=== PATIENT | female | born 1990 | race Caucasian/White ===

== ENCOUNTER 2016-12-22 18:35 | Inpatient (IN) ==
[2016-12-22] MEDS ORDERED: MAG-AL + SIM ORAL LIQUID 30ml PO PRN ×2 (19:29→21:29)
[2016-12-22] MEDS ORDERED: CARBOPROST 250 MCG/ML INJECTION IM PRN (19:29)
[2016-12-22] MEDS ORDERED: METHYLERGONOVINE 0.2 MG/ML INJECTION IM PRN (19:29)
[2016-12-22] MEDS ORDERED: ACETAMINOPHEN 500 MG TABLET PO PRN ×2 (19:29→21:29)
[2016-12-22] MEDS ORDERED: CALCIUM CARBONATE Chewable 500mg TABLET PO PRN ×2 (19:29→21:29)
[2016-12-22] MEDS ORDERED: LIDOCAINE 1% (10mg/ml) 2mL INJ PF SDV ID PRN (19:29)
[2016-12-22] MEDS ORDERED: LR 1,000 ML IV PRN (19:29)
[2016-12-22] MEDS ORDERED: AMPICILLIN 2 GM in NS 100 ML IV ONE (19:45)
[2016-12-22] MEDS ORDERED: MORPHINE SULFATE 10 MG/ML VIAL IVP ONE (20:38)
--- NOTE | 2016-12-22 21:03 | OB/GYN History & Physical ---
- History of Present Illness Date of Admission: 12/22/16 19:10 Reason for Admission: other (Contractions, Loss of fluid) History of Present Illness: Pt presented to [facility] unit [place] [facility] [place] 1845 with complaints of regular uterine contractions and loss of fluid. Pt was discharged from [facility] on Monday12/20/2016 after being on the antepartum unit for labor. Pt received ANCS at 32w6d . She has had an uncomplicated course in otherwise. She had prior complicated by PTD at 34 wga and received 17 OHP this with her last injection 12/22/16. Expected Date of Delivery: 01/28/17 : 3 Para: 1 - OB History #1 Delivery Type: vaginal delivery Year: 2011 Complications: PTD at 34 wga #2 Delivery Type: spontaneous Year: 2015 Review of Systems - Review of Systems All systems: reviewed and no additional remarkable complaints except as stated - Constitutional Constitutional: Present: as per HPI PFSH ASTHMA, PCOS, Ovarian Cyst, Condyloma, Ascus HPV+ PAP Surgical History: L Knee Arthoscopy, Mirena IUD insertion, Colposcopy, Crycautery Family History: Non contributory - Social History second hand exposure: No Substance use type: does not use Alcohol intake frequency: does not drink Household members: spouse, children Medications Home Medications Medication Instructions Recorded Confirmed Type Pnv95/Ferrous Fumarate/FA 1 tab PO DAILY #0 03/11/16 History [ Tablet] Hydrocodone/APAP 5/325 [[place] 1 - 2 tab PO Q4H PRN 12/09/16 12/09/16 History 5/325] proGESTerone [Progesterone] 50 mg IM WEEKLY 12/09/16 12/09/16 History Allergies Allergy/AdvReac Type Severity Reaction Status Date / Time aspirin Allergy Unknown Verified 03/16/16 13:52 Exam - Constitutional Present: mild distress - Neck Exam Present: supple - Respiratory Exam Comments: Non labored - Cardiovascular Exam Present: RRR - Abdominal Exam Comments: Gravid - Extremities Exam Extremities: Present: no edema - Neurological Exam Present: alert, oriented X3 - Psychiatric Exam Present: normal affect - Additional findings Complete, 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 GBS neg [facility] 12/10/16 PN lab O +, ABscr neg, RI, RPR NR, HBsag NR, HIV NR, CH/GC, HgB 11.4, DMS 119 Antepartum Assessment and Plan (1) labor in third trimester Current visit: Yes Status: Acute Plan: Admit for labor (ROM, start GBS prophylaxsis as unknown at time, Pain relief as needed, update peds, anticipate )
--- NOTE | 2016-12-22 21:26 | OB/GYN Procedure Note ---
Delivery date: 12/22/16 Procedure: Events: Labor < 37 Weeks Intrapartal events: Precipitous Labor < 3 hours Induction method: none Delivery monitor: external FHT, external uterine Route of delivery: Episiotomy description: None Laceration description: Labial Estimated blood loss (mL): 200 Anesthesia type: None Disposition: floor Complications: delivery Narrative: Spontaneous vaginal delivery of viable male (Janusz) APGARs 8/9 over intact perineum in cephalic presentation OA position at 34w 6d. Spontaneous delivery of placenta. EBL 200cc. Pt delivered with unmedicated childbirth. Delivery was proceeded by SROM and precipitous labor and delivery presenting at 4 cm at 1845, 7 cm at 1999, and delivered at 2030. GBS prophylaxis was initiated for unknown GBS status and . Placenta sent to pathology and cord blood gasses collected and sent. Pitocin given after delivery of infant. Mother in stable condition, infant room with mom at time of note. - [place] Baby 1 Infant gender: Male presentation: Vertex Placenta delivery description: Spontaneous cord vessel description: 3 Vessels at 1 minute: 8 at 5 minutes: 9
[2016-12-22] MEDS ORDERED: SALINE FLUSH 10ml SYRINGE IVF PRN (21:29)
[2016-12-22] MEDS ORDERED: TETANUS, DIPHTHERIA, a PERTUSSIS (Tdap) 0.5ml INJECTION IM ONE (21:29)
[2016-12-22] MEDS ORDERED: DiphenhydrAMINE 25 MG CAPSULE PO PRN (21:29)
[2016-12-22] MEDS ORDERED: Oxycodone/Acetaminophen 5/325 1 TAB PO PRN (21:29)
[2016-12-22] MEDS ORDERED: HYDROCORTISONE 2.5% CREAM 30gm RECTALLY PRN (21:29)
[2016-12-22] MEDS ORDERED: OXYTOCIN DRIP 30 UNIT/500 ML ML IV SCH (21:30)
[2016-12-22] MEDS: IBUPROFEN 800 MG TABLET PO PRN (22:09)
[2016-12-22] MEDS ORDERED: AMPICILLIN 1 GM in NS 100 ML IV SCH (23:45)
[2016-12-23] MEDS: DOCUSATE CALCIUM 240 MG CAPSULE PO SCH ×2 (07:42→14:55)
[2016-12-23] MEDS: IBUPROFEN 800 MG TABLET PO PRN (07:42)
[2016-12-23] MEDS: PRENATAL VITAMIN TABLET PO SCH ×2 (07:42→14:55)
[2016-12-23] MEDS ORDERED: PNV95 PO SCH (09:00)
[2016-12-23] MEDS ORDERED: FERROUS FUMARATE PO SCH (09:00)
[2016-12-23] MEDS ORDERED: [UNRECOGNIZED DRUG - OTHER] PO SCH (09:00)
--- NOTE | 2016-12-23 18:12 | OB/GYN Progress Note ---
OB-Progress Note Free Text - Date Date: 12/23/16 - Progress Note Progress Note: vss af doing well. pt seen earlier today walking in hallway baby came out of SCn around noon today. q&a earlier.
[2016-12-24] MEDS: PRENATAL VITAMIN TABLET PO SCH (10:40)
[2016-12-24] MEDS: DOCUSATE CALCIUM 240 MG CAPSULE PO SCH (10:40)
[2016-12-24 11:03] VITALS: BP 122/65; PULSE 77; RESP 18; TEMP 98; O2SAT 100
--- NOTE | 2016-12-24 12:29 | OB/GYN Progress Note ---
OB-Progress Note Free Text - Date Date: 12/24/16 - Progress Note Progress Note: vss af PPD#2 no pain meds plan to dc to boarding today instructions reviewed q&a-krb
--- NOTE | 2016-12-24 12:34 | Discharge Instructions ---
Discharge Plan - Med Rec/Dispo Referrals/Follow Up: Sergio Lazo MD [Physician] - 5-6 Weeks Prescriptions: New Ibuprofen [Motrin] 800 mg PO Q8H PRN tablet PRN Reason: Pain Continue Pnv95/Ferrous Fumarate/FA [ Tablet] 1 tab PO DAILY #0 Discontinued Hydrocodone/APAP 5/325 [[place] 5/325] 1 - 2 tab PO Q4H PRN PRN Reason: Discomfort proGESTerone [Progesterone] 50 mg IM WEEKLY - Disposition Discharged Home, Self-Care
== END 2016-12-24 13:22 | disposition home or self-care (01) | DRG 775 ==
LOC: MC 18:35 → OBOBS 18:35 → MC 19:10
PROVIDERS: ADMIT Obstetrics & Gynecology; ATTEND Obstetrics & Gynecology